=== PATIENT | male | born 1965 | race Caucasian/White ===

== ENCOUNTER 2022-01-28 13:06 | Outpatient (CLI) | payer BC, SELFPAY ==
[2022-01-28 22:00] LABS: Albumin* 4.6 g/dL (3.3-5.0); Chloride* 100 mmol/L (96-114)
[2022-01-28 22:01] LABS: Potassium* 4.5 mmol/L (3.6-5.1); Sodium* 140 mmol/L (135-149)
[2022-01-28 22:02] LABS: Cholesterol* 182 mg/dL (90-199)
[2022-01-28 22:03] LABS: Alanine Aminotransferase* 28 U/L (4-50); Alkaline Phosphatase* 68 U/L (40-150); Aspartate Amino Transferase* 27 U/L (12-35); Bilirubin Total* 0.8 mg/dL (0.1-1.5); Blood Urea Nitrogen* 17 mg/dL (7-30); Carbon Dioxide* 31 mmol/L (20-32); Creatinine* 0.9 mg/dL (0.5-1.5); Estimated Glomerular Filt Rate 101 ml/min; Glucose* 80 mg/dL (60-115); Total Protein* 7.3 g/dL (6.0-8.3); Triglycerides* 118 mg/dL (40-149)
[2022-01-28 22:04] LABS: Calcium* 9.3 mg/dL (8.4-10.6); HDL Cholesterol* 46 mg/dL (>=40); LDL Cholesterol Calculated 112 mg/dL (<100)
[2022-01-28 22:34] LABS: PSA Screen* 0.79 ng/mL (0.10-4.00)
== END 2022-01-28 13:07 | disposition home or self-care (01) ==
PROVIDERS: PCP Family Medicine; Visit Provider Family Medicine
DX: Z00.00 Encounter for general adult medical examination without abnormal findings (principal); E78.00 Pure hypercholesterolemia, unspecified; I10 Essential (primary) hypertension; Z12.5 Encounter for screening for malignant neoplasm of prostate
CPT/HCPCS: 80053; 80061; 84153

== ENCOUNTER 2023-04-14 13:04 | Outpatient (CLI) | payer BC, SELFPAY | END 2023-04-14 13:05 | disposition home or self-care (01) | PROVIDERS: PCP Family Medicine; Visit Provider Family Medicine | DX: Z00.00 Encounter for general adult medical examination without abnormal findings (principal); E78.00 Pure hypercholesterolemia, unspecified; I10 Essential (primary) hypertension; Z12.5 Encounter for screening for malignant neoplasm of prostate | CPT/HCPCS: 80053; 80061; 85027; G0103 ==

== ENCOUNTER 2024-05-09 13:32 | Outpatient (CLI) | payer BC, SELFPAY | END 2024-05-09 13:33 | disposition home or self-care (01) | PROVIDERS: PCP Family Medicine; Visit Provider Family Medicine | DX: I10 Essential (primary) hypertension (principal); E78.00 Pure hypercholesterolemia, unspecified; Z12.5 Encounter for screening for malignant neoplasm of prostate | CPT/HCPCS: 80053; 80061; G0103 ==

== ENCOUNTER 2024-07-08 11:48 | Outpatient (CLI) | payer BC, SELFPAY ==
--- NOTE | 2024-07-16 12:21 | W.PM.SLEEP ---
Sleep Study Details Details Interpreting Provider: Jeramy Date of Sleep Study: 07/08/24 Sleep Study Details: STUDY TYPE:? Home unattended ? BMI:? Not recorded ORDERING PROVIDER:? Cesar INDICATION:? Concern about sleep apnea ? SLEEP SUMMARY:? 490 minutes monitored RESPIRATORY SUMMARY:? AHI 20.6 Low oxygen 78 7.3% of study oxygen less than 90% Snoring 100% PERIODIC LIMB MOVEMENTS OF SLEEP:? Not recorded CARDIAC:? Range 50-101, mean 64 beats per minute IMPRESSION:? Moderate obstructive sleep apnea with significant desaturations RECOMMENDATION: Treatment options include CPAP, dental appliance and/or airway expansion surgery.
== END 2024-07-08 11:49 | disposition home or self-care (01) ==
LOC: SLEEP 11:49
PROVIDERS: PCP Family Medicine; Visit Provider Family Medicine
DX: G47.33 Obstructive sleep apnea (adult) (pediatric) (principal)
CPT/HCPCS: 95806